=== PATIENT | female | born 1935 | race African-American/Black ===

== ENCOUNTER → 2016-08-05 | Outpatient (REF) | payer MEDICARE, BC | LOC: M LAB REF 17:18 | PROVIDERS: ATTEND Internal Medicine Nephrology | DX: R80.9 Proteinuria, unspecified (principal); N18.4 Chronic kidney disease, stage 4 (severe) ==

== ENCOUNTER → 2019-08-04 | Outpatient (CLI) | payer MEDICARE, BC ==
--- NOTE | 2019-08-05 08:11 | REP ---
CT ABDOMEN PELVIS WITHOUT IV OR ORAL CONTRAST: Stone protocol. HISTORY: Kidney calculus. No comparison CT study. Comparison MRI study February 12, 2006 and renal sonography July 17, 2013. FINDINGS: Preliminary digital grain manager radiograph demonstrates a levoconvex thoracolumbar scoliotic curve, a normal bowel gas pattern, and cardiomegaly. The lung bases are essentially clear. The lower thoracic aorta is quite tortuous. The kidneys are bilaterally markedly enlarged and contain innumerable bilateral renal cysts consistent with polycystic kidney disease. This is more pronounced than on the 2006 prior study. There is a 0.9 cm cyst in the right lobe of the liver. No other hepatic cysts are appreciated. Spleen is unremarkable. There is a fluid-fluid level in the gallbladder with some granular material consistent with cholelithiasis. The pancreas is displaced by the renal enlargement but no pancreatic cyst or mass is appreciated. No hydronephrosis is seen. There is a tiny 1 mm calcific opacity in the lower pole of the right kidney. This could be an intrarenal stone. No nephrolithiasis is noted on the left. Vascular calcification is noted. No ascites. There is mild diverticulosis of the sigmoid colon. No abdominal wall defect is seen. Urinary bladder is unremarkable. A no bony destructive lesion is seen. IMPRESSION: Polycystic kidney disease advanced. Cholelithiasis with sludge and stones in a mildly distended gallbladder. Mild left colonic diverticulosis. There is a single tiny calculus in the lower pole right kidney. No hydronephrosis is seen. No other urinary tract calculus is seen. Electronically Signed by Vincent Crane MD 08/06/2019 06:17 P
== END ==
LOC: M RAD 15:55
PROVIDERS: ATTEND Internal Medicine Nephrology
DX: N20.0 Calculus of kidney (principal); Q61.3 Polycystic kidney, unspecified; K80.20 Calculus of gallbladder without cholecystitis without obstruction; K57.30 Diverticulosis of large intestine without perforation or abscess without bleeding

== ENCOUNTER → 2020-05-13 | Outpatient (REF) | payer MEDICARE, BC | LOC: M LAB REF 17:42 | PROVIDERS: ATTEND Internal Medicine Nephrology | DX: R80.9 Proteinuria, unspecified (principal) ==

== ENCOUNTER → 2020-05-14 | Outpatient (CLI) | payer MEDICARE, BC ==
--- NOTE | 2020-05-14 14:54 | REP ---
INDICATION: HTN- EKG FIRST. COMPARISON: None. TECHNIQUE: PA and lateral chest FINDINGS: The lungs appear hyperinflated. The cardiovascular silhouette within normal limits. Mediastinum and bony thorax are unremarkable. IMPRESSION: The lungs appear hyperinflated, and clear. Mediastinum and bony thorax are unremarkable. <Electronically signed by Avel Dan > 05/14/20 [id number]
--- NOTE | 2020-05-14 21:57 | ECGEPIP ---
[facility] Test Date: 2020-05-14 Pat Name: YOSHI PACHECO Department: Room: - Gender: Female Enterprise Application Administrator: KATHY : 1935 Requested By: Rach Oglesby Order Number: [id number] Reading MD: Ramesh Boyle Measurements Intervals Outlook Rate: 56 P: AL: QRS: 21 QRSD: 88 T: 176 QT: 498 QTc: 480 Interpretive Statements Underlying atrial fibrillation/flutter with somewhat slow ventricular response Slow precordial R wave progression with prominent voltage and repolarization abnormalities in keeping with left ventricular hypertrophy. No prior tracing for comparison. Clincal correlation advised Electronically Signed on 05-14-2020 21:57:38 EDT by Ramesh Boyle
== END ==
LOC: M RAD 14:05
PROVIDERS: ATTEND Family Medicine
DX: I11.9 Hypertensive heart disease without heart failure (principal); I48.91 Unspecified atrial fibrillation

== ENCOUNTER → 2020-08-13 | Outpatient (REF) | payer MEDICARE, BC | LOC: M LAB REF 17:05 | PROVIDERS: ATTEND Internal Medicine Nephrology | DX: N25.81 Secondary hyperparathyroidism of renal origin (principal) ==

== ENCOUNTER → 2020-10-16 | Outpatient (CLI) | payer MEDICARE, BC ==
[~2020-10-16] MED LIST: AMLO1TAB25; ELIQ2.5T; HYDR-3910; METO100T5; PARI1CAP3
== END ==
LOC: M LABSMTC 11:01
PROVIDERS: ATTEND Anesthesiology
DX: Z01.812 Encounter for preprocedural laboratory examination (principal)

== ENCOUNTER 2020-10-18 07:56 | Day surgery (SDC) | payer MEDICARE, BC ==
[~2020-10-18] VITALS: Ht 160 cm; Wt 49.4 kg
[~2020-10-18 07:56] MED LIST changes: +BSS IRR 500ML/OMIDRIA 4ML IRR BAG (OR ONLY) As Ordered ONE; +BSS IRR 500ML/OMIDRIA 4ML IRR BAG (OR ONLY) IO ONE; +CEFUROXIME 1MG/0.1ML INTRACAMERAL INJ As Ordered ONE; +CEFUROXIME 1MG/0.1ML INTRACAMERAL INJ ICAM ONE; +DUOVISC (0.50ML VISCOAT/0.85ML PROVISC) OPHTH KIT As Ordered ONE; +LIDOCAINE 1% SDV 5ML VIAL As Ordered ONE; +MIDAZOLAM INJ 2MG/2ML VIAL (J2250 PER 1MG) As Ordered ONE; +OFLOXACIN 0.3 % (OCUFLOX) OPTH SOL 5ML OD SCH; +PHENYLEPHRINE 2.5% OPHTH SOL 2ML OD SCH; +PROPARACAINE 0.5% OPHTH SOL 15ML OD ONE; +TROPICAMIDE 1% OPHTH SOLN 2ML OD SCH; +fentaNYL 100 MCG/2 ML INJECTION (J3010) As Ordered ONE
[2020-10-18] MEDS ORDERED: TRYPAN BLUE 0.06 % 2.25 ML OPHTH SYR (VISIONBLUE) As Ordered ONE (10:36)
[2020-10-18] MEDS ORDERED: LIDOCAINE 1% SDV 5ML VIAL As Ordered ONE (10:46)
[2020-10-18] MEDS ORDERED: BUPIVACAINE HCL 0.25% 10ML VIAL As Ordered ONE (10:46)
[2020-10-18] MEDS ORDERED: POVIDONE-IODINE 5% OPHTH PREP SOL 30ML As Ordered ONE (11:03)
[2020-10-18 12:00] VITALS: BP 149/78
[2020-10-18] MEDS ORDERED: propofoL 200 MG/20 ML VIAL As Ordered ONE (12:04)
--- NOTE | 2020-10-18 16:05 | ROOPDOC ---
[facility] Report Of Operation Report of Operation DATE OF PROCEDURE: 10/18/20 DATE OF PROCEDURE: October 18, 2020 PREPROCEDURE DIAGNOSES: 1. 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 Abnormal Red Reflex POSTPROCEDURE DIAGNOSES: Same. PROCEDURE PERFORMED: Complex phacoemulsification cataract extraction implantation intraocular lens right eye with pupil stretching using iris hooks and lens capsule staining SURGEON: Jose Hilliard MD BINDING BENCH WORKER: None ANESTHESIA: MAC. ESTIMATED BLOOD LOSS: Approximately 0 cc mL. COMPLICATIONS: None. LENS: 25.0. diopters SPECIMENS REMOVED: None INDICATIONS: Patient experienced decreased vision associated with cataract formation. Slit-lamp examination confirmed the diagnosis. Informed consent was obtained for removal of the cataract and placement of intraocular lens. A poorly dilating pupil was noted. A very poor red reflex was noted. The additional risk factors for surgery were reviewed with the patient. PROCEDURE NOTE: Patient was identified in the holding room and the operative eye was marked. Patient was wheeled spine the OR suite and positioned on the stretcher. The lids lashes and periocular face of the operative eye were prepped with 5% povidone iodine. The lashes were taped with a Tegaderm dressing. A speculum was placed in the operative eye. 1 mm side-port was created. 1% preservative-free lidocaine was injected. Trypan blue was injected. Viscoat was injected. 5 additional 1 mm side-port incisions were made. Griesaber iris hooks were inserted one of the time using the microtying forceps. A 2.6 mm stepped groove clear cornea incision was made temporally. A bent cystotome needle and Utrata forceps were used to fashion a continuous curvilinear capsulorhexis. BSS was used to hydrodissect. The lens was found to rotate freely. The lens was phacoemulsified using a divide and conquer technique. Residual cortex was removed with the I/A. Provisc was injected to expand the capsular bag. The lens was injected using the lens delivery system and positioned with a Kj hook. All iris hooks were removed using the forceps. Residual viscoelastic was removed with the I/A. BSS was used to hydrate the corneal wound. Antibiotic prophylaxis was injected. The speculum was removed from the eye. A shield was taped over the eye. The patient was sent in excellent condition to the recovery room with a shield. JOSE HILLIARD M.D. Oct 18, 2020 16:05
[2020-11-01] MEDS ORDERED: FURO20TA2 PO (14:15)
== END 2020-10-18 12:00 | disposition home or self-care (01) ==
LOC: M SDC 07:56
PROVIDERS: ATTEND Ophthalmology
DX: H25.11 Age-related nuclear cataract, right eye (principal); H21.81 Floppy iris syndrome; H44.89 Other disorders of globe; I10 Essential (primary) hypertension; Z88.8 Allergy status to other drugs, medicaments and biological substances; Z79.01 Long term (current) use of anticoagulants; Z79.899 Other long term (current) drug therapy; R21 Rash and other nonspecific skin eruption
CPT/HCPCS: 66982; 92015; J1097; J2250; J3010; V2632

== ENCOUNTER → 2020-10-22 | Outpatient (CLI) | payer MEDICARE, BC ==
[~2020-10-22] MED LIST changes: -BSS IRR 500ML/OMIDRIA 4ML IRR BAG (OR ONLY) As Ordered ONE; -BSS IRR 500ML/OMIDRIA 4ML IRR BAG (OR ONLY) IO ONE; -CEFUROXIME 1MG/0.1ML INTRACAMERAL INJ As Ordered ONE; -CEFUROXIME 1MG/0.1ML INTRACAMERAL INJ ICAM ONE; -DUOVISC (0.50ML VISCOAT/0.85ML PROVISC) OPHTH KIT As Ordered ONE; +FURO20TA2 PO; -LIDOCAINE 1% SDV 5ML VIAL As Ordered ONE; -MIDAZOLAM INJ 2MG/2ML VIAL (J2250 PER 1MG) As Ordered ONE; -OFLOXACIN 0.3 % (OCUFLOX) OPTH SOL 5ML OD SCH; -PHENYLEPHRINE 2.5% OPHTH SOL 2ML OD SCH; -PROPARACAINE 0.5% OPHTH SOL 15ML OD ONE; -TROPICAMIDE 1% OPHTH SOLN 2ML OD SCH; -fentaNYL 100 MCG/2 ML INJECTION (J3010) As Ordered ONE
--- NOTE | 2020-10-22 13:13 | REP ---
INDICATION: ESRD COMPARISON: None. TECHNIQUE: Real time compression and duplex Doppler evaluation of the Bilateral upper extremity deep venous system is performed. FINDINGS: The Bilateral subclavian, jugular, axillary, brachial, basilic and cephalic veins are fully compressible where accessible with transducer pressure, and demonstrate no intraluminal thrombus and normal venous waveforms. There is no evidence of deep venous thrombosis. Right: Basilic vein size (mm)/ Cephalic vein size (mm) Upper humerus: 3/2 Lower humerus:1 Upper forearm: 02/08 Lower forearm/wrist: 02/08 Median cubital:2 Right arterial structures: Peak systolic velocity (cm/s)/waveform/size (mm) Axillary: 51.1/biphasic/6 Brachial: 88.2/biphasic/4 Radial: 46.9/biphasic/3 Ulnar:49.3/biphasic/1 Left: Basilic vein size (mm)/ Cephalic vein size (mm) Upper humerus: 3/ Lower humerus:02/08 Upper forearm: 02/08 Lower forearm/wrist:02/08 Median cubital:1 Left arterial structures: Peak systolic velocity (cm/s)/waveform/size (mm) Axillary: 83.8/biphasic/5 Brachial: 79.4/biphasic/3 Radial: 38.4/biphasic/2 Ulnar: 38.7/biphasic/2 IMPRESSION: No evidence of deep venous thrombosis of the Bilateral upper extremity deep vein system. Arterial and venous sizes are given above. <Electronically signed by Casey Desai > 10/22/20 [id number]
== END ==
LOC: M RAD 10:40
PROVIDERS: ATTEND Internal Medicine Nephrology
DX: N18.6 End stage renal disease (principal); R09.89 Other specified symptoms and signs involving the circulatory and respiratory systems

== ENCOUNTER 2023-05-08 06:51 | Inpatient (IN) | payer MEDICARE ==
[~2023-05-08] VITALS: Ht 160 cm; Wt 49.0 kg
[~2023-05-08 06:51] MED LIST changes: -AMLO1TAB25; +AMLO1TAB25 PO; -ELIQ2.5T; +ELIQ2.5T PO; -HYDR-3910; +HYDR25TA87; -METO100T5; +METO100T5 PO; +PARI1CAP21; -PARI1CAP3
[2023-05-08 07:58] LABS: ALBUMIN 2.4 G/DL (3.2-5.2); ALKALINE PHOSPHATASE 68 U/L (46-116); ALT/SGPT < 9 U/L (7.0-40); AST/SGOT 12 U/L (<34); BILIRUBIN,DIRECT < 0.1 MG/DL (<0.4); BILIRUBIN,TOTAL 0.2 MG/DL (0.3-1.2); BLOOD UREA NITROGEN 67 MG/DL (9-23); CALCIUM LEVEL 8.2 MG/DL (8.3-10.6); CARBON DIOXIDE LEVEL 15 MMOL/L (20-31); CHLORIDE LEVEL 113 MMOL/L (98-107); CREATININE FOR GFR 4.67 MG/DL (0.55-1.30); GLOMERULAR FILTRATION RATE 11.4 (>32); GLUCOSE, FASTING 88 MG/DL (74-106); LIPASE 53 U/L (12-53); POTASSIUM SERUM 4.1 MMOL/L (3.5-5.1); SODIUM LEVEL 139 MMOL/L (136-145); TOTAL PROTEIN 6.5 G/DL (5.7-8.2)
[2023-05-08 08:09] LABS: INR 1.23; PARTIAL THROMBOPLASTIN TIME 42.8 SECONDS (24.8-34.2); PROTHROMBIN TIME 15.1 SECONDS (12.5-14.5)
[2023-05-08] MEDS ORDERED: BENA25CA4 PO (08:15)
[2023-05-08 08:16] LABS: HEMOGLOBIN 8.1 g/dl (12.0-15.5); LYMPH % 17.4 % (24.0-44.0); MEAN CORPUSCULAR HEMOGLOBIN 30.5 pg (27.0-33.0); MEAN CORPUSCULAR HGB CONC 31.2 g/dl (32.0-36.5); MEAN CORPUSCULAR VOLUME 97.7 fl (80.0-96.0); NEUTROPHILS % 66.3 % (36.0-66.0); PLATELET COUNT, AUTOMATED 353 10^3/uL (150-450); RED BLOOD COUNT 2.66 10^6/uL (4.00-5.40); WHITE BLOOD COUNT 7.2 10^3/uL (4.0-10.0)
[2023-05-08 08:17] LABS: BASO % 0.6 % (0.0-1.0); EOS # 0.3 10^3/uL (0.0-0.5); EOS % 3.8 % (0.0-3.0); LYMPH # 1.3 10^3/uL (1.5-5.0); MONO # 0.8 10^3/uL (0.0-0.8); MONO % 11.6 % (2.0-8.0); NEUTROPHILS # 4.8 10^3/uL (1.5-8.5)
[2023-05-08 08:30] LABS: RSV AMPLIFICATION NEGATIVE (NEGATIVE)
[2023-05-08] MEDS ORDERED: MED REC IN PROGRESS XX SCH (08:40)
[2023-05-08] MEDS ORDERED: NS 1,000 ML IV ONE (08:40)
[2023-05-08] MEDS: NS 1,000 ML IV ONE ×2 (09:09→09:23)
[2023-05-08] MEDS ORDERED: MAALOX 30 ML SUSP *UDC PO PRN (09:40)
[2023-05-08] MEDS ORDERED: HOME MED LIST COMPLETE! XX SCH (10:30)
[2023-05-08 12:37] LABS: VENOUS BASE EXCESS -11.7 (-2.0-2.0); VENOUS HCO3 14.8 MMOL/L (23.0-27.0); VENOUS O2 SATURATION 86.5 % (60.0-80.0); VENOUS PARTIAL PRESSURE CO2 35.8 mmHg (38.0-50.0); VENOUS PARTIAL PRESSURE O2 57.6 mmHg (30.0-50.0); VENOUS PH 7.235 UNITS (7.330-7.430); VENOUS TOTAL CO2 15.9 MMOL/L (24.0-28.0)
[2023-05-08 13:11] LABS: PERCENT SATURATION 10.3 % (13.2-45.0)
[2023-05-08] MEDS: CEFDINIR 300 MG CAP (OMNICEF) PO SCH (14:10)
[2023-05-08 15:26] VITALS: BP 139/79; TEMP 97.7; O2SAT 97
[2023-05-08] MEDS: FUROSEMIDE 20 MG TAB PO SCH (16:19)
[2023-05-08 16:36] LABS: CALCIUM LEVEL 8.1 MG/DL (8.3-10.6); CREATININE FOR GFR 4.84 MG/DL (0.55-1.30); GLOMERULAR FILTRATION RATE 10.9 (>32); POTASSIUM SERUM 3.8 MMOL/L (3.5-5.1)
[2023-05-08] MEDS: SODIUM BICARBONATE 100 MEQ in D5W 1,000 ML IV SCH (16:38)
[2023-05-08 20:15] VITALS: BP 134/70; TEMP 97.7; O2SAT 96
[2023-05-08] MEDS: METOPROLOL TARTRATE 100MG TAB PO SCH (20:38)
[2023-05-08] MEDS: APIXABAN 2.5 MG TAB (ELIQUIS) PO SCH (20:38)
[2023-05-08 20:58] LABS: CALCIUM LEVEL 7.5 MG/DL (8.3-10.6); CREATININE FOR GFR 4.62 MG/DL (0.55-1.30); GLOMERULAR FILTRATION RATE 11.5 (>32); POTASSIUM SERUM 3.7 MMOL/L (3.5-5.1)
[2023-05-09 04:46] VITALS: BP 124/60; TEMP 98.1; O2SAT 94
[2023-05-09 06:46] LABS: CREATININE FOR GFR 4.54 MG/DL (0.55-1.30); GLOMERULAR FILTRATION RATE 11.7 (>32); MAGNESIUM LEVEL 2.2 MG/DL (1.8-2.4); POTASSIUM SERUM 4.2 MMOL/L (3.5-5.1)
[2023-05-09] MEDS: MOM 30ML SUSPENSION UDC PO PRN (09:47)
[2023-05-09] MEDS: SODIUM BICARBONATE 325 MG TAB PO SCH (12:37)
[2023-05-09 14:00] VITALS: BP 123/63; TEMP 97.5; O2SAT 91
[2023-05-09] MEDS: FERRIC CARBOXYMALTOSE INJ 750 MG, VIAL MATE ADAPTER 1 EACH in NS 250 ML IV ONE (14:35)
[2023-05-09 20:37] VITALS: BP 118/58; TEMP 97.9; O2SAT 97
[2023-05-10 06:00] VITALS: BP 121/56; TEMP 98.6; O2SAT 96
[2023-05-10 06:05] LABS: HEMOGLOBIN 7.7 g/dl (12.0-15.5); MEAN CORPUSCULAR HEMOGLOBIN 30.8 pg (27.0-33.0); MEAN CORPUSCULAR HGB CONC 32.1 g/dl (32.0-36.5); WHITE BLOOD COUNT 6.4 10^3/uL (4.0-10.0)
[2023-05-10 06:06] LABS: BASO % 0.5 % (0.0-1.0); EOS # 0.2 10^3/uL (0.0-0.5); EOS % 3.8 % (0.0-3.0); MONO # 0.6 10^3/uL (0.0-0.8); MONO % 9.7 % (2.0-8.0); NEUTROPHILS # 4.5 10^3/uL (1.5-8.5); NEUTROPHILS % 69.5 % (36.0-66.0); PLATELET COUNT, AUTOMATED 314 10^3/uL (150-450)
[2023-05-10 06:32] LABS: CALCIUM LEVEL 8.2 MG/DL (8.3-10.6); CREATININE FOR GFR 4.48 MG/DL (0.55-1.30); GLOMERULAR FILTRATION RATE 11.9 (>32); MAGNESIUM LEVEL 2.5 MG/DL (1.8-2.4); POTASSIUM SERUM 4.3 MMOL/L (3.5-5.1)
[2023-05-10] MEDS: DARBEPOETIN 100MCG/0.5ML *NON-DIALYSIS* SYRINGE SC SCH (09:58)
[2023-05-10 10:04] LABS: HEMATOCRIT 25.4 % (36.0-47.0); HEMOGLOBIN 8.1 g/dl (12.0-15.5)
[2023-05-10 14:00] VITALS: BP 125/78; TEMP 96.8; O2SAT 90
[2023-05-10 15:14] LABS: HEMOGLOBIN 8.5 g/dl (12.0-15.5)
[2023-05-10 19:14] LABS: HEMOGLOBIN 7.9 g/dl (12.0-15.5)
[2023-05-10 20:40] VITALS: BP 118/63; TEMP 98.1; O2SAT 98
[2023-05-10 22:22] LABS: HEMATOCRIT 21.6 % (36.0-47.0)
[2023-05-10 22:25] LABS: HEMOGLOBIN 6.9 g/dl (12.0-15.5)
[2023-05-10] MEDS: FERROUS SULFATE 325MG TAB PO SCH (22:58)
[2023-05-10] MEDS: DOCUSATE SODIUM 100MG CAPSULE PO SCH (22:59)
[2023-05-10 23:53] VITALS: BP 125/64; TEMP 99.3; O2SAT 93
[2023-05-11] VITALS (11 sets, daily range): BP systolic 106–139; BP diastolic 56–71; TEMP 97.9–99.3; O2SAT 90–100
[2023-05-11 08:37] LABS: BASO % 0.3 % (0.0-1.0); EOS # 0.3 10^3/uL (0.0-0.5); EOS % 4.3 % (0.0-3.0); LYMPH # 1.3 10^3/uL (1.5-5.0); LYMPH % 17.8 % (24.0-44.0); MEAN CORPUSCULAR HEMOGLOBIN 30.2 pg (27.0-33.0); MEAN CORPUSCULAR VOLUME 94.3 fl (80.0-96.0); NEUTROPHILS # 4.8 10^3/uL (1.5-8.5); NEUTROPHILS % 64.2 % (36.0-66.0); PLATELET COUNT, AUTOMATED 274 10^3/uL (150-450); RED BLOOD COUNT 3.18 10^6/uL (4.00-5.40); WHITE BLOOD COUNT 7.5 10^3/uL (4.0-10.0)
[2023-05-11 08:39] LABS: HEMOGLOBIN 9.6 g/dl (12.0-15.5)
[2023-05-11 08:54] LABS: ALBUMIN 2.4 G/DL (3.2-5.2); BILIRUBIN,TOTAL 0.7 MG/DL (0.3-1.2); CALCIUM LEVEL 7.5 MG/DL (8.3-10.6); CALCIUM LEVEL 7.9 MG/DL (8.3-10.6); CREATININE FOR GFR 4.17 MG/DL (0.55-1.30); CREATININE FOR GFR 4.28 MG/DL (0.55-1.30); GLOMERULAR FILTRATION RATE 12.6 (>32); MAGNESIUM LEVEL 2.4 MG/DL (1.8-2.4); POTASSIUM SERUM 4.8 MMOL/L (3.5-5.1); TOTAL PROTEIN 6.1 G/DL (5.7-8.2)
[2023-05-11] MEDS: METOPROLOL TART 25 MG TABLET PO SCH (09:00)
[2023-05-11] MEDS: SODIUM BICARBONATE 325 MG TAB PO SCH (21:16)
[2023-05-12 05:10] VITALS: BP 125/61; TEMP 98.6; O2SAT 91
[2023-05-12 06:51] LABS: BASO % 0.4 % (0.0-1.0); EOS # 0.3 10^3/uL (0.0-0.5); EOS % 4.3 % (0.0-3.0); HEMATOCRIT 28.3 % (36.0-47.0); HEMOGLOBIN 9.1 g/dl (12.0-15.5); LYMPH # 1.3 10^3/uL (1.5-5.0); LYMPH % 17.3 % (24.0-44.0); MEAN CORPUSCULAR HGB CONC 32.2 g/dl (32.0-36.5); MEAN CORPUSCULAR VOLUME 93.4 fl (80.0-96.0); MONO % 13.7 % (2.0-8.0); NEUTROPHILS # 4.6 10^3/uL (1.5-8.5); NEUTROPHILS % 63.5 % (36.0-66.0); PLATELET COUNT, AUTOMATED 279 10^3/uL (150-450); RED BLOOD COUNT 3.03 10^6/uL (4.00-5.40); WHITE BLOOD COUNT 7.3 10^3/uL (4.0-10.0)
[2023-05-12 07:33] LABS: ALBUMIN 2.1 G/DL (3.2-5.2); BILIRUBIN,TOTAL 0.4 MG/DL (0.3-1.2); CALCIUM LEVEL 7.6 MG/DL (8.3-10.6); CREATININE FOR GFR 4.4 MG/DL (0.55-1.30); GLOMERULAR FILTRATION RATE 12.2 (>32); MAGNESIUM LEVEL 2.4 MG/DL (1.8-2.4); POTASSIUM SERUM 4.6 MMOL/L (3.5-5.1); TOTAL PROTEIN 5.8 G/DL (5.7-8.2)
[2023-05-12] MEDS: FERROUS SULFATE 325MG TAB PO SCH (08:22)
[2023-05-12] MEDS: FUROSEMIDE 100MG/10ML VIAL IV ONE (09:33)
[2023-05-12 14:38] VITALS: BP 138/64; TEMP 97.5; O2SAT 93
[2023-05-12 21:07] VITALS: BP 125/60; TEMP 97.9; O2SAT 95
[2023-05-13 07:26] LABS: BASO % 0.4 % (0.0-1.0); EOS # 0.3 10^3/uL (0.0-0.5); HEMATOCRIT 29.9 % (36.0-47.0); HEMOGLOBIN 9.7 g/dl (12.0-15.5); LYMPH # 1.3 10^3/uL (1.5-5.0); MEAN CORPUSCULAR HEMOGLOBIN 30.7 pg (27.0-33.0); MEAN CORPUSCULAR HGB CONC 32.4 g/dl (32.0-36.5); MEAN CORPUSCULAR VOLUME 94.6 fl (80.0-96.0); MONO % 11.8 % (2.0-8.0); NEUTROPHILS # 5.5 10^3/uL (1.5-8.5); NEUTROPHILS % 67.2 % (36.0-66.0); PLATELET COUNT, AUTOMATED 274 10^3/uL (150-450); RED BLOOD COUNT 3.16 10^6/uL (4.00-5.40); WHITE BLOOD COUNT 8.2 10^3/uL (4.0-10.0)
[2023-05-13 07:48] LABS: ALBUMIN 2.3 G/DL (3.2-5.2); BILIRUBIN,TOTAL 0.5 MG/DL (0.3-1.2); CALCIUM LEVEL 7.9 MG/DL (8.3-10.6); CREATININE FOR GFR 4.31 MG/DL (0.55-1.30); GLOMERULAR FILTRATION RATE 12.5 (>32); MAGNESIUM LEVEL 2.2 MG/DL (1.8-2.4)
[2023-05-13] MEDS: PATIROMER SORBITEX CALCIUM 8.4 GM POWDER PACKET (VELTASSA) PO ONE (10:59)
[2023-05-13 14:00] VITALS: BP 119/65; TEMP 98.6; O2SAT 88
[2023-05-13 20:23] VITALS: BP 135/59; TEMP 98.4
[2023-05-13] MEDS: ACETAMINOPHEN TAB 650MG DOSE (2X325MG) PO PRN (21:44)
[2023-05-14 06:16] VITALS: BP 144/71; TEMP 97.7; O2SAT 94
[2023-05-14 07:23] LABS: BASO % 0.4 % (0.0-1.0); EOS # 0.5 10^3/uL (0.0-0.5); EOS % 5.6 % (0.0-3.0); HEMATOCRIT 28.8 % (36.0-47.0); LYMPH # 1.5 10^3/uL (1.5-5.0); MEAN CORPUSCULAR HEMOGLOBIN 30.1 pg (27.0-33.0); MEAN CORPUSCULAR HGB CONC 31.3 g/dl (32.0-36.5); MEAN CORPUSCULAR VOLUME 96.3 fl (80.0-96.0); MONO # 1.1 10^3/uL (0.0-0.8); MONO % 13.8 % (2.0-8.0); NEUTROPHILS % 61.6 % (36.0-66.0); PLATELET COUNT, AUTOMATED 276 10^3/uL (150-450); RED BLOOD COUNT 2.99 10^6/uL (4.00-5.40); WHITE BLOOD COUNT 8.1 10^3/uL (4.0-10.0)
[2023-05-14 07:57] LABS: ALKALINE PHOSPHATASE 70 U/L (46-116); ALT/SGPT < 9 U/L (7.0-40); AST/SGOT 13 U/L (<34); BILIRUBIN,TOTAL 0.3 MG/DL (0.3-1.2); BLOOD UREA NITROGEN 71 MG/DL (9-23); CALCIUM LEVEL 7.9 MG/DL (8.3-10.6); CARBON DIOXIDE LEVEL 18 MMOL/L (20-31); CHLORIDE LEVEL 113 MMOL/L (98-107); CREATININE FOR GFR 4.74 MG/DL (0.55-1.30); GLOMERULAR FILTRATION RATE 11.2 (>32); GLUCOSE, FASTING 79 MG/DL (74-106); MAGNESIUM LEVEL 2.3 MG/DL (1.8-2.4); POTASSIUM SERUM 4.9 MMOL/L (3.5-5.1); SODIUM LEVEL 138 MMOL/L (136-145); TOTAL PROTEIN 5.7 G/DL (5.7-8.2)
[2023-05-14 14:15] VITALS: BP 137/61; TEMP 98.1; O2SAT 95
[2023-05-14] MEDS ORDERED: SODI325T9 PO (16:02)
[2023-05-14] MEDS ORDERED: FERR1TAB8 PO (16:02)
[2023-05-14] MEDS ORDERED: COLA100C5 PO (16:02)
[2023-05-14] MEDS ORDERED: METO1TAB87 PO (16:02)
[2023-05-14 18:14] VITALS: BP 130/67; TEMP 98.6; O2SAT 93
[2023-05-14 18:24] VITALS: BP 134/64
== END 2023-05-14 18:50 | disposition home health service (06) | DRG 689 ==
LOC: M ED 06:51 → EDBD 06:51 → M ED INP 09:39 → M MSPAV 15:27
PROVIDERS: ADMIT Student in an Organized Health Care Education/Training Program; ATTEND Internal Medicine
PROC: 30233N1 Transfusion of Nonautologous Red Blood Cells into Peripheral Vein, Percutaneous Approach (ICD-10-PCS; principal; 2023-05-10)
DX: N39.0 Urinary tract infection, site not specified (principal); I50.33 Acute on chronic diastolic (congestive) heart failure; I13.2 Hypertensive heart and chronic kidney disease with heart failure and with stage 5 chronic kidney disease, or end stage renal disease; E87.20 Acidosis, unspecified; J90 Pleural effusion, not elsewhere classified; E46 Unspecified protein-calorie malnutrition; N18.5 Chronic kidney disease, stage 5; Z68.1 Body mass index [BMI] 19.9 or less, adult; F03.B0 Unspecified dementia, moderate, without behavioral disturbance, psychotic disturbance, mood disturbance, and anxiety; D50.9 Iron deficiency anemia, unspecified; I48.91 Unspecified atrial fibrillation; E78.5 Hyperlipidemia, unspecified; R29.6 Repeated falls; R33.9 Retention of urine, unspecified; R41.89 Other symptoms and signs involving cognitive functions and awareness; B96.20 Unspecified Escherichia coli [E. coli] as the cause of diseases classified elsewhere; Z79.899 Other long term (current) drug therapy; Z88.8 Allergy status to other drugs, medicaments and biological substances; Z87.891 Personal history of nicotine dependence; L84 Corns and callosities; M19.90 Unspecified osteoarthritis, unspecified site; Z96.653 Presence of artificial knee joint, bilateral; E83.51 Hypocalcemia; Z91.119 Patient's noncompliance with dietary regimen due to unspecified reason

== ENCOUNTER 2023-05-20 09:00 | Inpatient (IN) | payer MEDICARE, BC ==
[~2023-05-20] VITALS: Ht 157.5 cm; Wt 54.5 kg
[~2023-05-20 09:00] MED LIST changes: +BENA25CA4 PO; +COLA100C5 PO; +FERR1TAB8 PO; +METO1TAB87 PO; +SODI325T9 PO
[2023-05-20] MEDS: NS 1,000 ML IV SCH (09:43)
[2023-05-20 09:53] LABS: VENOUS BASE EXCESS -12.1 (-2.0-2.0); VENOUS HCO3 13.1 MMOL/L (23.0-27.0); VENOUS O2 SATURATION 75.8 % (60.0-80.0); VENOUS PARTIAL PRESSURE CO2 28.4 mmHg (38.0-50.0); VENOUS PARTIAL PRESSURE O2 44.7 mmHg (30.0-50.0); VENOUS PH 7.283 UNITS (7.330-7.430); VENOUS STANDARD HCO3 14.6 MMOL/L
[2023-05-20 10:01] LABS: BASO % 0.4 % (0.0-1.0); EOS # 0.2 10^3/uL (0.0-0.5); EOS % 2.2 % (0.0-3.0); HEMATOCRIT 33.5 % (36.0-47.0); HEMOGLOBIN 10.4 g/dl (12.0-15.5); LYMPH # 1.2 10^3/uL (1.5-5.0); LYMPH % 15.8 % (24.0-44.0); MEAN CORPUSCULAR HEMOGLOBIN 30.4 pg (27.0-33.0); MONO # 0.8 10^3/uL (0.0-0.8); MONO % 10.6 % (2.0-8.0); NEUTROPHILS # 5.6 10^3/uL (1.5-8.5); NEUTROPHILS % 70.7 % (36.0-66.0); PLATELET COUNT, AUTOMATED 306 10^3/uL (150-450); RED BLOOD COUNT 3.42 10^6/uL (4.00-5.40); WHITE BLOOD COUNT 7.8 10^3/uL (4.0-10.0)
[2023-05-20 10:21] LABS: ALBUMIN 2.3 G/DL (3.2-5.2); ALKALINE PHOSPHATASE 89 U/L (46-116); ALT/SGPT 14 U/L (7.0-40); AST/SGOT 17 U/L (<34); BILIRUBIN,DIRECT 0.2 MG/DL (<0.4); BILIRUBIN,TOTAL 0.4 MG/DL (0.3-1.2); BLOOD UREA NITROGEN 66 MG/DL (9-23); CALCIUM LEVEL 7.8 MG/DL (8.3-10.6); CARBON DIOXIDE LEVEL 16 MMOL/L (20-31); CHLORIDE LEVEL 113 MMOL/L (98-107); CREATININE FOR GFR 5.07 MG/DL (0.55-1.30); GLOMERULAR FILTRATION RATE 10.3 (>32); GLUCOSE, FASTING 70 MG/DL (74-106); POTASSIUM SERUM 5.1 MMOL/L (3.5-5.1); SODIUM LEVEL 142 MMOL/L (136-145); TOTAL PROTEIN 6.4 G/DL (5.7-8.2)
[2023-05-20 10:25] LABS: THYROID STIMULATING HORMONE 5.078 uIU/ML (0.55-4.78)
[2023-05-20] MEDS ORDERED: FERR325T3 PO (13:09)
[2023-05-20] MEDS ORDERED: METO1TAB87 PO (13:09)
[2023-05-20] MEDS ORDERED: SODI325T9 PO (13:09)
[2023-05-20] MEDS ORDERED: HOME MED LIST COMPLETE! XX SCH (13:10)
[2023-05-20] MEDS: cefTRIAXone SOD 2 GM in D5W MINI-BAG PLUS 50 ML IV ONE (15:11)
[2023-05-20] MEDS ORDERED: ACETAMINOPHEN TAB 650MG DOSE (2X325MG) PO PRN (16:25)
[2023-05-20 18:04] LABS: C REACTIVE PROTEIN QUANTITATIV 16.6 MG/DL (<1.0)
[2023-05-20 18:06] LABS: THYROID STIMULATING HORMONE 3.442 uIU/ML (0.55-4.78)
[2023-05-20 18:07] LABS: FREE T4 0.94 NG/DL (0.89-1.76)
[2023-05-20] MEDS: D5W/LR 1,000 ML IV SCH (18:27)
[2023-05-20] MEDS: DOXYCYCLINE HYCLATE 100MG TABLET PO SCH (18:27)
[2023-05-20 21:24] VITALS: BP 131/83; TEMP 97.7; O2SAT 93
[2023-05-20] MEDS: SODIUM BICARBONATE 325 MG TAB PO SCH (21:56)
[2023-05-20] MEDS: APIXABAN 2.5 MG TAB (ELIQUIS) PO SCH (21:56)
[2023-05-20] MEDS: METOPROLOL TART 25 MG TABLET PO SCH (21:57)
[2023-05-21 05:30] VITALS: BP 133/78; TEMP 97.9; O2SAT 92
[2023-05-21 08:03] LABS: ALBUMIN 2.2 G/DL (3.2-5.2); BILIRUBIN,TOTAL 0.3 MG/DL (0.3-1.2); CREATININE FOR GFR 4.79 MG/DL (0.55-1.30); POTASSIUM SERUM 4.8 MMOL/L (3.5-5.1); TOTAL PROTEIN 5.8 G/DL (5.7-8.2)
[2023-05-21] MEDS: FERROUS SULFATE 325MG TAB PO SCH (08:22)
[2023-05-21] MEDS: IPRATROPIUM 0.5MG/ALBUTEROL 2.5MG INH SOL UD 3ML (DUONEB) NEB ONE (12:10)
[2023-05-21 12:17] LABS: HEMATOCRIT 32.9 % (36.0-47.0); HEMOGLOBIN 10.2 g/dl (12.0-15.5); MEAN CORPUSCULAR HEMOGLOBIN 30.9 pg (27.0-33.0); MEAN CORPUSCULAR VOLUME 99.7 fl (80.0-96.0); PLATELET COUNT, AUTOMATED 283 10^3/uL (150-450); WHITE BLOOD COUNT 6.2 10^3/uL (4.0-10.0)
[2023-05-21] MEDS: D5W 1,000 ML IV SCH (12:30)
[2023-05-21 12:39] LABS: CALCIUM LEVEL 7.8 MG/DL (8.3-10.6); CREATININE FOR GFR 4.64 MG/DL (0.55-1.30); GLOMERULAR FILTRATION RATE 11.5 (>32); POTASSIUM SERUM 4.9 MMOL/L (3.5-5.1)
[2023-05-21 14:00] VITALS: BP 130/75; TEMP 97.9; O2SAT 93
[2023-05-21] MEDS: cefTRIAXone SOD 1 GM in D5W MINI-BAG PLUS 50 ML IV SCH (14:09)
[2023-05-21 20:32] VITALS: BP 128/80; TEMP 99; O2SAT 92
[2023-05-22 05:20] VITALS: BP 131/67; TEMP 97.7; O2SAT 95
[2023-05-22 05:50] LABS: HEMATOCRIT 31.3 % (36.0-47.0); HEMOGLOBIN 9.7 g/dl (12.0-15.5); MEAN CORPUSCULAR HEMOGLOBIN 30.9 pg (27.0-33.0); MEAN CORPUSCULAR VOLUME 99.7 fl (80.0-96.0); PLATELET COUNT, AUTOMATED 281 10^3/uL (150-450); RED BLOOD COUNT 3.14 10^6/uL (4.00-5.40); WHITE BLOOD COUNT 7.9 10^3/uL (4.0-10.0)
[2023-05-22 06:35] LABS: CALCIUM LEVEL 7.9 MG/DL (8.3-10.6); CREATININE FOR GFR 4.68 MG/DL (0.55-1.30); GLOMERULAR FILTRATION RATE 11.3 (>32); POTASSIUM SERUM 4.8 MMOL/L (3.5-5.1)
[2023-05-22] MEDS: CEFEPIME HCL 1 GM in D5W MINI-BAG PLUS 50 ML IV SCH (09:41)
[2023-05-22 14:00] VITALS: BP 133/66; TEMP 96.8; O2SAT 84
[2023-05-22 21:00] VITALS: BP 123/71; TEMP 97.2; O2SAT 93
[2023-05-22 21:15] VITALS: BP 123/71; TEMP 99.1; O2SAT 91
[2023-05-23 05:04] VITALS: BP 132/68; TEMP 98.8; O2SAT 91
[2023-05-23 09:00] VITALS: BP 133/68
[2023-05-23 10:06] LABS: HEMATOCRIT 35.6 % (36.0-47.0); HEMOGLOBIN 10.9 g/dl (12.0-15.5); MEAN CORPUSCULAR HEMOGLOBIN 31.1 pg (27.0-33.0); MEAN CORPUSCULAR HGB CONC 30.6 g/dl (32.0-36.5); MEAN CORPUSCULAR VOLUME 101.4 fl (80.0-96.0); PLATELET COUNT, AUTOMATED 295 10^3/uL (150-450); RED BLOOD COUNT 3.51 10^6/uL (4.00-5.40); WHITE BLOOD COUNT 6.2 10^3/uL (4.0-10.0)
[2023-05-23 10:42] LABS: CALCIUM LEVEL 7.7 MG/DL (8.3-10.6); CREATININE FOR GFR 4.38 MG/DL (0.55-1.30); GLOMERULAR FILTRATION RATE 12.2 (>32); PHOSPHORUS LEVEL 4.6 MG/DL (2.4-5.1); POTASSIUM SERUM 4.6 MMOL/L (3.5-5.1)
[2023-05-23 10:44] LABS: FREE T4 0.99 NG/DL (0.89-1.76); THYROID STIMULATING HORMONE 3.257 uIU/ML (0.55-4.78)
[2023-05-23] MEDS ORDERED: LORazepam 2 MG/ML 1ML VIAL IV PRN (14:35)
[2023-05-23] MEDS ORDERED: SCOPOLAMINE 1MG TRANSDERMAL PATCH TOP PRN (14:35)
[2023-05-23] MEDS ORDERED: MORPHINE 2 MG/ML 1ML VIAL IV PRN (15:15)
[2023-05-24] MEDS: ACETAMINOPHEN TAB 650MG DOSE (2X325MG) PO PRN (04:21)
[2023-05-25] MEDS: NYSTATIN 100,000 UNITS/GM TOPICAL PWD 15GM TOP SCH (04:45)
[2023-05-25] MEDS: diphenhydrAMINE 25MG CAP PO PRN (04:46)
[2023-05-25] MEDS: MORPHINE 10MG/0.5ML ORAL CONCENTRATE SOLUTION U/D SL PRN (10:22)
[2023-05-27] MEDS: LORazepam 1 MG TAB PO PRN (16:18)
[2023-05-27] MEDS: diphenhydrAMINE CREAM 30GM TOP PRN (16:18)
[2023-05-28] MEDS ORDERED: HYOS125TA PO (09:45)
[2023-05-28] MEDS ORDERED: MORP1SOL5 PO (09:45)
[2023-05-28] MEDS ORDERED: ATIV1TAB10 PO (09:45)
== END 2023-05-28 10:51 | disposition hospice, home (50) | DRG 698 ==
LOC: M ED 09:00 → EDBD 09:00 → M ED INP 16:22 → ENRESERV 19:46 → M MSPAV 21:24
PROVIDERS: ADMIT Hospitalist; ATTEND Internal Medicine
DX: T83.511A Infection and inflammatory reaction due to indwelling urethral catheter, initial encounter (principal); N18.6 End stage renal disease; J18.9 Pneumonia, unspecified organism; N17.9 Acute kidney failure, unspecified; I48.20 Chronic atrial fibrillation, unspecified; E87.20 Acidosis, unspecified; I13.2 Hypertensive heart and chronic kidney disease with heart failure and with stage 5 chronic kidney disease, or end stage renal disease; Q61.3 Polycystic kidney, unspecified; E87.1 Hypo-osmolality and hyponatremia; I50.32 Chronic diastolic (congestive) heart failure; E46 Unspecified protein-calorie malnutrition; N39.0 Urinary tract infection, site not specified; D50.9 Iron deficiency anemia, unspecified; R31.9 Hematuria, unspecified; F03.90 Unspecified dementia, unspecified severity, without behavioral disturbance, psychotic disturbance, mood disturbance, and anxiety; I27.20 Pulmonary hypertension, unspecified; R62.7 Adult failure to thrive; L84 Corns and callosities; Z79.01 Long term (current) use of anticoagulants; Z79.899 Other long term (current) drug therapy; Z88.8 Allergy status to other drugs, medicaments and biological substances; Z66 Do not resuscitate; Z96.653 Presence of artificial knee joint, bilateral; Z87.891 Personal history of nicotine dependence; Z51.5 Encounter for palliative care; Y84.6 Urinary catheterization as the cause of abnormal reaction of the patient, or of later complication, without mention of misadventure at the time of the procedure